=== PATIENT | female | born 1980 | race American Indian/Alaskan Native ===

== ENCOUNTER 2017-07-13 12:23 | Emergency (ER) | payer MEDICAID ==
[2017-07-13 12:41] VITALS: BP 139/90
--- NOTE | 2017-07-13 15:03 | Emergency Department Report ---
Blank Doc - Documentation Documentation: Patient is a 29-year-old female who is presenting with sudden onset of chest pain. Patient was at school in class and started developing sharp pain in the center chest. Patient states she felt as though she couldn't breathe during this episode with shortness of breath. Patient also states she has nausea as well. Patient states after about 30 minutes or so started to subside. Patient's pain went from a 10 out of 10 to her current state was 3 out of 10. Patient still feels the burning chest discomfort but is no longer short of breath. Patient is nares exhibit these symptoms before. Patient was slightly tachycardic on arrival and with her history of chest pain shortness of breath we will get a d-dimer. Troponin basic blood work and chest x-ray will be ordered as well. Ll
[2017-07-13 15:14] LABS: Hemoglobin 12.1 gm/dl (10.1-14.3); Mean Corpuscular HGB Conc 31 % (30-34); Platelet Count 474 K/mm3 (140-440); Red Blood Count 5.65 M/mm3 (3.65-5.03)
[2017-07-13 15:23] LABS: Mean Corpuscular Hemoglobin 22 pg (28-32); Mean Corpuscular Volume 69 fl (79-97); Red Cell Distribution Width 20.1 % (13.2-15.2)
[2017-07-13 15:26] LABS: BUN/Creatinine Ratio 10; Blood Urea Nitrogen 6 mg/dL (7-17); Calcium 9.3 mg/dL (8.4-10.2); Hemolysis Index 1
--- NOTE | 2017-07-13 16:28 | XRay Report ---
FINAL REPORT PROCEDURE: XR CHEST ROUTINE 2V TECHNIQUE: PA and lateral chest radiographs were obtained. CPT 29460 HISTORY: chest pain COMPARISON: No prior studies are available for comparison. FINDINGS: Heart: Normal. Mediastinum/Vessels: Normal. Lungs/Pleural space: Normal. Bony thorax: No acute osseous abnormality. Other: IMPRESSION: Negative examination.
[2017-07-13 17:27] LABS: Anisocytosis 1+; Band Neutrophils # (Manual) 0.2 K/mm3; Eosinophils % (Manual) 0 % (0.0-4.3); Total Cells Counted 100
[2017-07-13 17:28] LABS: Hypochromasia 1+; Ovalocytes 2+; Platelet Estimate Consistent w Auto; Poikilocytosis 1+
--- NOTE | 2017-07-13 19:24 | Emergency Department Report ---
ED Chest Pain HPI - General Chief Complaint: Chest Pain Stated Complaint: RESP DISTRESS Time Seen by Provider: 07/13/17 14:55 Source: patient Mode of arrival: Wheelchair Limitations: No Limitations - History of Present Illness Initial Comments: 36-year-old female comes in for sudden chest pain nausea. Patient reports she was in class when to the bathroom started to have shortness of breathing and chest pain that is getting worse when she got back to the classroom she was then sent out by EMS to be evaluated at the ER. Patient reports she feels much better now she was also concerned that she's been having epigastric burning in her chest. Patient does have a primary care doctor Dr. Rain from [facility]. Complaint: chest pain -: hour(s) Onset: during exertion Pain Location: substernal, right chest Pain Radiation: none Severity: mild Consistency: intermittent, now resolved Improves With: nothing Worsens With: nothing re: nausea Other Symptoms: denies: cough Treatments Prior to Arrival: none - Related Data Previous Rx's Medication Instructions Recorded Last Taken Type Omeprazole 40 mg PO QDAY #30 capsule. 07/13/17 Unknown Rx Allergies Allergy/AdvReac Type Severity Reaction Status Date / Time No Known Allergies Allergy Unverified 07/13/17 12:41 ED Review of Systems ROS: Stated complaint: RESP DISTRESS Other details as noted in HPI Constitutional: denies: chills, fever Eyes: denies: eye pain, eye discharge, vision change ENT: denies: ear pain, throat pain Respiratory: shortness of breath. denies: cough, wheezing Cardiovascular: chest pain (now resolved). denies: palpitations Endocrine: no symptoms reported Gastrointestinal: nausea. denies: abdominal pain, diarrhea Genitourinary: denies: urgency, dysuria, discharge Musculoskeletal: denies: back pain, joint swelling, arthralgia Skin: denies: rash, lesions Neurological: denies: headache, weakness, paresthesias Psychiatric: denies: anxiety, depression Hematological/Lymphatic: denies: easy bleeding, easy bruising ED Past Medical Hx - Past Medical History Hx Hypertension: Yes Hx Diabetes: Yes - Surgical History Additional Surgical History: left rotator repair 2011,right foot 2001 - Social History Smoking Status: Current Every Day Smoker Substance Use Type: None - Medications Home Medications: Home Medications Medication Instructions Recorded Confirmed Last Taken Type Omeprazole 40 mg PO QDAY #30 capsule. 07/13/17 Unknown Rx ED Physical Exam - General Limitations: No Limitations - Head Head exam: Present: atraumatic, normocephalic - Eye Eye exam: Present: normal appearance - ENT ENT exam: Present: mucous membranes moist - Neck Neck exam: Present: normal inspection - Respiratory Respiratory exam: Present: normal lung sounds bilaterally. Absent: respiratory distress - Cardiovascular Cardiovascular Exam: Present: regular rate, normal rhythm. Absent: systolic murmur, diastolic murmur, rubs, gallop - GI/Abdominal GI/Abdominal exam: Present: soft, normal bowel sounds - Extremities Exam Extremities exam: Present: normal inspection - Back Exam Back exam: Present: normal inspection - Neurological Exam Neurological exam: Present: alert, oriented X3 - Psychiatric Psychiatric exam: Present: normal affect, normal mood - Skin Skin exam: Present: warm, dry, intact, normal color. Absent: rash ED Course Vital Signs 07/13/17 12:35 Temperature 98 F Pulse Rate 107 H Respiratory 18 Rate Blood Pressure 139/90 O2 Sat by Pulse 99 Oximetry ED Medical Decision Making - Lab Data Result diagrams: 07/13/17 15:05 07/13/17 15:05 - Radiology Data Radiology results: report reviewed, image reviewed - Medical Decision Making Patient is being evaluated by this provider as well as Dr. Vila. Patient reports that her chest pain shortness of breathing has resolved. She still reports epigastric burning. Discussed patient will give her prescription for [id number] omeprazole to take for a few weeks to have her follow-up with her primary care provider. Also discussed the patient's chest x-ray was normal EKG is stable lab work is stable. Patient's patient verbalized understanding. Critical care attestation.: If time is entered above; I have spent that time in minutes in the direct care of this critically ill patient, excluding procedure time. ED Disposition Clinical Impression: Chest pain, atypical Acid reflux Qualifiers: Esophagitis presence: without esophagitis Qualified Code(s): K21.9 - Gastro- esophageal reflux disease without esophagitis Disposition: - TO HOME OR SELFCARE Is pt being admited?: No Does the pt Need Aspirin: No Condition: Stable Instructions: Chest Pain (ED) Additional Instructions: Please take medication as prescribed. Please follow-up with her primary care provider for further evaluation. Please return back to the emergency room expensive for chest pain shortness of breathing. Prescriptions: Omeprazole 40 mg PO QDAY #30 capsule.dr Referrals: CRISTHIAN RAIN MD [Primary Care Provider] - 3-5 Days Forms: Work/School Release Form(ED)
== END 2017-07-13 19:47 | disposition home or self-care (01) ==
LOC: ED 12:23 → EDBD 12:23 → ED 19:47
DX: R07.89 Other chest pain (principal); K21.9 Gastro-esophageal reflux disease without esophagitis; I10 Essential (primary) hypertension; E11.9 Type 2 diabetes mellitus without complications; F17.200 Nicotine dependence, unspecified, uncomplicated
CPT/HCPCS: 36415; 71046; 80048; 84484; 84703; 85007; 85025; 85379; 93005; 93010